=== PATIENT | female | born 2000 | race Two or more races ===

== ENCOUNTER 2020-06-15 09:13 | Emergency (ER) | payer OTHER ==
[~2020-06-15] VITALS: Ht 165.1 cm; Wt 90.7 kg
[2020-06-15 10:48] VITALS: BP 118/77
== END 2020-06-15 10:53 | disposition home or self-care (01) ==
LOC: EDBD 09:13 → ER 09:13
DX: O26.892 Other specified pregnancy related conditions, second trimester (principal); R10.9 Unspecified abdominal pain; Z3A.15 15 weeks gestation of pregnancy
CPT/HCPCS: 76805

== ENCOUNTER 2025-07-02 10:22 | Observation (INO) | payer MEDICAID, OTHER ==
[~2025-07-02] VITALS: Ht 165.1 cm; Wt 77.3 kg
[2025-07-02 10:26] VITALS: BP 108/66; PULSE 76; RESP 16; TEMP 98.1; O2SAT 100
--- NOTE | 2025-07-02 10:52 | ED.PDOC ---
APPLICATION INTERNSHIP HPI Comments 25 y/o F, presents to the ED for CC of urinary symptoms. Patient relays, that she is currently [id number] and began to experience vaginal spotting with associated dysuria and pelvic pressure sudden onset, this morning (07/02/25). Patient denies trauma, injury, fall, abdominal pain, or abdominal cramping. No other symptoms or modifiers are present at this time. Chief Complaint: Urinary Time Seen by MD: 10:35 Reviewed Notes: Nurses Notes, Medications, Allergies Allergies: Coded Allergies: NO KNOWN ALLERGIES (Unverified , 07/02/25) Home Meds Reported Medications Vit W/ Ferrous Fumara ( One Daily) Daily Tab, 1 TAB PO DAILY, #90 TAB 3 Refills 07/02/25 Nitrofurantoin Monohydrate Mac (Macrobid) 100 Mg Cap, 100 MG PO BID for 7 Days, CAP 07/02/25 Information Source: Patient Mode of Arrival: Ambulatory Timing: Hours Prehospital treatment: None Severity: Moderate Vaginal Discharge: None Vaginal Lesions: None Vaginal Mass: None Onset Of Mass/Bleeding: Spontaneous Sexual Activity: Last Consensual [place]: Unknown Control: None History of: Current Blood Type: Unknown Associated Signs and Symptoms: Vaginal Bleeding, Other (pelvic pressure) Past Medical History PAST MEDICAL HISTORY: Denies Surgical History: Denies all surgeries GATE OPERATOR History: Denies all GATE OPERATOR Hx Family History Family History: Reviewed,noncontributory to illness Social History Smoker: Non-Smoker Alcohol: Unknown Drugs: Unknown Lives In: Home Constitutional: denies: chills, diaphoresis, fatigue, fever, malaise, sweats, weakness, others EENTM: denies: blurred vision, double vision, ear bleeding, ear discharge, ear drainage, ear pain, ear ringing, eye pain, eye redness, hearing loss, mouth pain, mouth swelling, nasal discharge, nose bleeding, nose congestion, nose pain, photophobia, tearing, throat pain, throat swelling, voice changes, others Respiratory: denies: cough, hemoptysis, orthopnea, SOB at rest, shortness of breath, SOB with excertion, stridor, wheezing, others Cardiovascular: denies: chest pain, dizzy spells, diaphoresis, Dyspnea on exertion, edema, irregular heart beat, left arm pain, lightheadedness, palpitations, PND, syncope, others Gastrointestinal: denies: abdomen distended, abdominal pain, blood streaked bowels, constipated, diarrhea, dysphagia, difficulty swallowing, hematemesis, melena, nausea, poor appetite, poor fluid intake, rectal bleeding, rectal pain, vomiting, others Genitourinary: reports: abnormal vagina bleeding, dysuria, others (pelvic pressure); denies: burning, dyspareunia, flank pain, frequency, hematuria, incontinence, pain, , vagina discharge, urgency Neurological: denies: dizziness, fainting, headache, left sided numbness, left sided weakness, numbness, paresthesia, pre-existing deficit, right sided numbness, right sided weakness, seizure, speech problems, tingling, tremors, weakness, others Musculoskeletal: denies: back pain, gout, joint pain, joint swelling, muscle pain, muscle stiffness, neck pain, others Integumetry: denies: bruises, change in color, change in hair/nails, dryness, laceration, lesions, lumps, rash, wounds, others Allergic/Immunocompromised: denies: Difficulty Healing, Frequent Infections, Hives, Itching, others Hematologic/Lymphatic: denies: anemia, blood clots, easy bleeding, easy bruisi ng, swollen glands, others Endocrine: denies: excessive hunger, excessive sweating, excessive thirst, exce ssive urination, flushing, intolerance to cold, intolerance to heat, unexplained weight gain, unexplained weight loss, others Psychiatric: denies: anxiety, bipolar disorder, depression, hopeless, panic disorder, schizophrenia, sleepless, suicidal, others All Other Systems: Reviewed and Negative Physical Exam General Appearance: Moderate Distress HEENT: Normal ENT Inspection, Pharynx Normal, TMs Normal Neck: Full Range of Motion, Non-Tender, Normal, Normal Inspection Respiratory: Chest Non-Tender, Lungs Clear, No Accessory Muscle Use, No Respiratory Distress, Normal Breath Sounds Cardiovascular: No Edema, No JVD, No Murmur, No Gallop, Normal Peripheral Pulses, Regular Rate/Rhythm Breast Exam: Deferred Gastrointestinal: No Organomegaly, Non Tender, No Pulsatile Mass, Normal Bowel Sounds, Soft Genitalia: Deferred Pelvic: Deferred Rectal: Deferred Extremities: No calf tenderness, Normal capillary refill, Normal inspection, Normal range of motion, Non-tender, No pedal edema Musculoskeletal : Apperance: Normal Neurologic: Alert, wide area network systems administrator II-XII nml as Tested, No Motor Deficits, Normal Affect, Normal Mood, No Sensory Deficits Cerebellar Function: Normal Reflexes: Normal Skin: Dry, Normal Color, Warm Peripheral Pulses: 3+ Radial (R), 3+ Radial (L) Lymphatic: No Adenopathy Was a procedure done? Was a procedure done?: No Differential Diagnosis (GATE OPERATOR) Vaginal Bleeding: - Complete, - Incomplete, - Inevitable, - Missed, - Threatened, UTI X-Ray, Labs, Meds, VS Vital Signs Date Time Temp Pulse Resp B/P (MAP) Pulse Ox O2 Delivery O2 Flow Rate FiO2 07/02/25 10:26 98.1 76 16 108/66 100 98.1 Patient alert. Complaining of vaginal spotting. Vitals stable. Answering all questions. No medical condition. She was sent to [facility]. Satisfied with the treatment plan. Continue monitoring. Was told to come back if there is any problem. Time of 1ST Reevaluation: 11:05 Reevaluation 1ST: Improved Patient Education/Counseling: Diagnosis, Treatment Family Education/Counseling: Diagnosis, Treatment Departure 1 Departure Time of Disposition: 17:37 Impression: Primary Impression: Normal Qualified Codes: Z34.90 - Encounter for supervision of normal , unspecified, unspecified trimester Disposition: 01 HOME / SELF CARE / HOMELESS Condition: Good Discharged With: Self Critical Care Note Critical Care Time?: No Stability Stability form required: No Heart Score Heart Score: Heart Score Response (Comments) Value History N/A 0 EKG N/A 0 Age N/A 0 Risk Factors N/A 0 Troponin N/A 0 Total 0 I personally scribed for JONELLE BAEZ MD ([email or web address]) on 07/02/25 at 10:52. Electronically submitted by Shanta Chin ([email or web address]). JONELLE BAEZ MD Jul 02, 2025 10:52
[2025-07-02 11:48] LABS: Urine Protein, UAD Negative (Negative)
[2025-07-02] MEDS ORDERED: NITR-87 PO (12:01)
[2025-07-02] MEDS ORDERED: PREN-96 PO (12:02)
--- NOTE | 2025-07-02 16:15 | DVHDS2 ---
Physician Discharge Progress N Final Diagnosis: IUP 20+ wk Acute cystitis Operations or Procedures: Operations or Procedures monitoring Commentary: Commentary UA shows cystitis Condition on Discharge: Stable Disposition: Home Discharge Instructions: Diet: Regular Activity: No Restrictions, As Tolerated Activity comment: As tolerated Follow Up/Referral: PRN Medications: macrobid 100mg BID Follow Up Care: Discharge Statement: "Patient was advised to return to the ER or call 911 if any headaches, dizziness, shortness of breath, chest pain, abdominal pain, bleeding, fevers, or worsening of medical condition. Patient was counseled about treatment plan, medications, possible side effects, patientverbalized understanding. All questions were answered to the best of my ability. This discharge took greater then 30 minutes in planning, reviewing documentation, counseling the patient, and discussing with other team members." Visit Coding OBGYN Date of Service: Jul 02, 2025 Billing Provider: CAMERON CASSIDY DO DRAFTER APPRENTICE Common Visit Codes: 90802-WOP/OBS SAME DATE (HIGH) DRAFTER APPRENTICE Procedure Codes: 65104-02- NON-STRESS TEST CAMERON CASSIDY DO Jul 02, 2025 16:15
== END 2025-07-02 12:15 | disposition home or self-care (01) ==
LOC: ER 10:22 → LDRP 10:34 → UNDOADMOB 10:36 → LDRP 10:48 → UNDODISOB 12:15
PROVIDERS: ADMIT Obstetrics & Gynecology; ATTEND Obstetrics & Gynecology
DX: O23.12 Infections of bladder in pregnancy, second trimester (principal); N30.00 Acute cystitis without hematuria; O26.852 Spotting complicating pregnancy, second trimester; Z3A.22 22 weeks gestation of pregnancy; Z98.890 Other specified postprocedural states; Z79.899 Other long term (current) drug therapy
CPT/HCPCS: 81001; 81002; 82948; 99284; G0378